=== PATIENT | male | born 1990 | race Caucasian/White ===

== ENCOUNTER 2020-11-06 11:33 | Emergency (ER) | payer OTHER ==
[~2020-11-06] VITALS: Ht 193 cm; Wt 86.2 kg
== END 2020-11-06 12:27 | disposition home or self-care (01) ==
LOC: ER 11:33
DX: S71.111A Laceration without foreign body, right thigh, initial encounter (principal); W26.0XXA Contact with knife, initial encounter
CPT/HCPCS: 12002; 99282-25

== ENCOUNTER 2021-06-26 11:32 | Emergency (ER) | payer OTHER ==
[~2021-06-26] VITALS: Ht 193 cm; Wt 86.2 kg
[2021-06-26 12:51] LABS: Source, Urine Clean Catch
[2021-06-26 13:02] LABS: Appearance, Urine Clear (Clear); Bilirubin, Urine Neg (Neg); Blood, Urine Neg (Neg); Color, Urine Yellow (P-Yellow); Glucose Qualitative, Urine Neg (Neg); Ketones, Urine Neg (Neg); Leukocyte Esterase, Urine Neg (Neg); Nitrite, Urine Neg (Neg); Protein, Urine Neg (Neg); Specific Gravity, Urine 1.015 (1.003-1.022); Urobilinogen, Urine 1+ (Normal); pH, Urine 6.5 (5.0-8.0)
== END 2021-06-26 15:10 | disposition left against medical advice (07) ==
LOC: ER 11:32
PROVIDERS: Physician Assistant
DX: M54.5 Low back pain (principal); G89.29 Other chronic pain; N28.89 Other specified disorders of kidney and ureter; R35.0 Frequency of micturition; Z53.21 Procedure and treatment not carried out due to patient leaving prior to being seen by health care provider; Z87.81 Personal history of (healed) traumatic fracture
CPT/HCPCS: 72100; 81003; 99284-25

== ENCOUNTER 2021-07-15 10:53 | Emergency (ER) | payer OTHER ==
[~2021-07-15] VITALS: Ht 193 cm; Wt 86.2 kg
[2021-07-15] MEDS ORDERED: ONDA4ODT MM (11:39)
[2021-07-15 11:40] LABS: Calcium, Ionized (POC) 1.29 mmol/L (1.10-1.46); Chloride (POC) 103 mmol/L (98-108); Creatinine (POC) 0.8 mg/dL (0.8-1.3); Glucose (ISTAT POC) 96 mg/dL (70-99); Hemoglobin (POC) 16.3 g/dL (13.5-17.5); Potassium (POC) 4.4 mmol/L (3.5-5.5); Sodium (POC) 141 mmol/L (135-148); Total CO2 (POC) 27 mmol/L (21-32)
[2021-07-15] MEDS ORDERED: Percocet 5-3251 EACH PO (12:01)
[2021-07-15] MEDS ORDERED: CYCL10 PO (12:01)
== END 2021-07-15 11:59 | disposition home or self-care (01) ==
LOC: ER 10:53
PROVIDERS: Physician Assistant
DX: M54.5 Low back pain (principal); U07.1 COVID-19; G89.29 Other chronic pain; F17.200 Nicotine dependence, unspecified, uncomplicated
CPT/HCPCS: 36415; 72080; 80047; 85014; 99283-25; A9270

== ENCOUNTER 2021-12-23 08:48 | Emergency (ER) | payer OTHER ==
[~2021-12-23] VITALS: Ht 193 cm; Wt 86.2 kg
[~2021-12-23 08:48] MED LIST: CYCL10 PO; ONDA4ODT MM; Percocet 5-3251 EACH PO
== END 2021-12-23 09:42 | disposition left against medical advice (07) ==
LOC: ER 08:48
DX: Z53.21 Procedure and treatment not carried out due to patient leaving prior to being seen by health care provider (principal)

== ENCOUNTER 2023-02-06 14:19 | Emergency (ER) | payer OTHER ==
[~2023-02-06] VITALS: Ht 193 cm; Wt 86.2 kg
[2023-02-06 16:50] LABS: BASOPHILS ABSOLUTE AUTO 0.02 K/mm3 (0.00-0.23); BASOPHILS PERCENT AUTO 0 % (0-2); EOSINOPHILS ABSOLUTE AUTO 0.01 K/mm3 (0.00-0.68); EOSINOPHILS PERCENT AUTO 0 % (0-6); Hematocrit 39.5 % (37.0-53.0); Hemoglobin 14.3 g/dL (13.5-17.5); IMMATURE GRAN ABSOLUTE AUTO 0.07 K/mm3 (0.00-0.10); IMMATURE GRAN PERCENT AUTO 0 % (0-1); LYMPHOCYTES ABSOLUTE AUTO 2.11 K/mm3 (0.84-5.20); LYMPHOCYTES PERCENT AUTO 13 % (21-46); MONOCYTES ABSOLUTE AUTO 1.66 K/mm3 (0.16-1.47); MONOCYTES PERCENT AUTO 10 % (4-13); Mean Corpuscular HGB 31.5 pg (26.0-34.0); Mean Corpuscular HGB Conc 36.2 g/dL (31.5-36.5); Mean Corpuscular Volume 87 fL (80-100); Mean Platelet Volume 10.1 fL (9.1-12.4); NEUTROPHILS ABSOLUTE AUTO 12.15 K/mm3 (1.96-9.15); NEUTROPHILS PERCENT AUTO 76 % (41-73); Platelet Count 243 K/mm3 (150-400); RDW Coefficient Variation 12.4 % (11.7-14.2); RDW Standard Deviation 39.8 fL (35.1-46.3); Red Blood Cell Count 4.54 M/mm3 (4.30-5.90); White Blood Cell Count 16.02 K/mm3 (4.00-11.30)
[2023-02-06 17:17] LABS: Albumin, Blood 4.4 g/dL (3.4-5.0); Albumin/Globulin Ratio 1.4 (0.8-1.8); Bilirubin, Total 1.3 mg/dL (0.1-1.0); Bun/Creatinine Ratio 37.9 (12.0-20.0); Calcium, Blood 9.2 mg/dL (8.5-10.1); Creatinine, Blood 0.77 mg/dL (0.60-1.20); Globulin, Blood 3.2 g/dL (2.2-4.0); Potassium, Blood 4.9 mmol/L (3.5-5.5); Total Protein, Blood 7.6 g/dL (6.4-8.2)
== END 2023-02-06 17:30 | disposition left against medical advice (07) ==
LOC: ER 14:19
PROVIDERS: Physician Assistant
DX: S80.212A Abrasion, left knee, initial encounter (principal); H53.8 Other visual disturbances; M54.9 Dorsalgia, unspecified; S09.90XA Unspecified injury of head, initial encounter; W01.0XXA Fall on same level from slipping, tripping and stumbling without subsequent striking against object, initial encounter; Z53.21 Procedure and treatment not carried out due to patient leaving prior to being seen by health care provider
CPT/HCPCS: 36415; 70486; 80053; 85025

== ENCOUNTER 2023-02-07 15:02 | Inpatient (IN) | payer OTHER ==
[~2023-02-07] VITALS: Ht 193 cm; Wt 78.7 kg
[2023-02-07 16:12] LABS: BASOPHILS ABSOLUTE AUTO 0.01 K/mm3 (0.00-0.23); BASOPHILS PERCENT AUTO 0 % (0-2); EOSINOPHILS ABSOLUTE AUTO 0.01 K/mm3 (0.00-0.68); EOSINOPHILS PERCENT AUTO 0 % (0-6); Hematocrit 40.2 % (37.0-53.0); Hemoglobin 14.2 g/dL (13.5-17.5); IMMATURE GRAN ABSOLUTE AUTO 0.06 K/mm3 (0.00-0.10); IMMATURE GRAN PERCENT AUTO 0 % (0-1); LYMPHOCYTES ABSOLUTE AUTO 0.68 K/mm3 (0.84-5.20); LYMPHOCYTES PERCENT AUTO 4 % (21-46); MONOCYTES ABSOLUTE AUTO 1.56 K/mm3 (0.16-1.47); MONOCYTES PERCENT AUTO 10 % (4-13); Mean Corpuscular HGB 30.9 pg (26.0-34.0); Mean Corpuscular HGB Conc 35.3 g/dL (31.5-36.5); Mean Corpuscular Volume 87 fL (80-100); Mean Platelet Volume 10.1 fL (9.1-12.4); NEUTROPHILS ABSOLUTE AUTO 13.65 K/mm3 (1.96-9.15); NEUTROPHILS PERCENT AUTO 85 % (41-73); Platelet Count 244 K/mm3 (150-400); RDW Coefficient Variation 12.3 % (11.7-14.2); RDW Standard Deviation 39.8 fL (35.1-46.3); White Blood Cell Count 15.97 K/mm3 (4.00-11.30)
[2023-02-07 16:32] LABS: Albumin, Blood 4.1 g/dL (3.4-5.0); Albumin/Globulin Ratio 1.3 (0.8-1.8); Bilirubin, Total 1.4 mg/dL (0.1-1.0); Bun/Creatinine Ratio 22.5 (12.0-20.0); Calcium, Blood 9.3 mg/dL (8.5-10.1); Creatinine, Blood 0.76 mg/dL (0.60-1.20); Globulin, Blood 3.1 g/dL (2.2-4.0); Potassium, Blood 4.1 mmol/L (3.5-5.5); Total Protein, Blood 7.2 g/dL (6.4-8.2)
[2023-02-07 22:55] LABS: Body Fluid Crystals NEG (NEGATIVE)
[2023-02-07 23:23] LABS: BODY FLUID RBC 0.008 M/mm3 (0-0)
[2023-02-07 23:28] LABS: RBC Count, Synovial Fluid 8000 /mm3 (0-0); WBC Count, Synovial Fluid 49010 /mm3 (0-180)
[2023-02-07 23:49] LABS: Lymphs, Synovial Fluid 4 % (0-15); Monocytes/Macrophages, Synovia 6 % (0-65); Neutrophils, Synovial Fluid 90 % (0-24)
[2023-02-07 23:55] LABS: Appearance, Synovial Fluid Cloudy (Clear); Color, Synovial Fluid Yellow (None-P Yel)
[2023-02-08 05:22] LABS: BASOPHILS ABSOLUTE AUTO 0.03 K/mm3 (0.00-0.23); BASOPHILS PERCENT AUTO 0 % (0-2); EOSINOPHILS PERCENT AUTO 0 % (0-6); Hematocrit 36.8 % (37.0-53.0); Hemoglobin 12.9 g/dL (13.5-17.5); IMMATURE GRAN ABSOLUTE AUTO 0.05 K/mm3 (0.00-0.10); IMMATURE GRAN PERCENT AUTO 0 % (0-1); LYMPHOCYTES ABSOLUTE AUTO 1.28 K/mm3 (0.84-5.20); LYMPHOCYTES PERCENT AUTO 10 % (21-46); MONOCYTES ABSOLUTE AUTO 1.83 K/mm3 (0.16-1.47); MONOCYTES PERCENT AUTO 14 % (4-13); Mean Corpuscular HGB Conc 35.1 g/dL (31.5-36.5); Mean Corpuscular Volume 89 fL (80-100); Mean Platelet Volume 10.4 fL (9.1-12.4); NEUTROPHILS ABSOLUTE AUTO 9.98 K/mm3 (1.96-9.15); NEUTROPHILS PERCENT AUTO 76 % (41-73); Platelet Count 209 K/mm3 (150-400); RDW Coefficient Variation 12.3 % (11.7-14.2); RDW Standard Deviation 40.1 fL (35.1-46.3); Red Blood Cell Count 4.16 M/mm3 (4.30-5.90); White Blood Cell Count 13.17 K/mm3 (4.00-11.30)
[2023-02-08 05:42] LABS: Albumin, Blood 3.3 g/dL (3.4-5.0); Albumin/Globulin Ratio 1.1 (0.8-1.8); Bilirubin, Total 1.1 mg/dL (0.1-1.0); Bun/Creatinine Ratio 18.4 (12.0-20.0); Calcium, Blood 8.6 mg/dL (8.5-10.1); Creatinine, Blood 0.71 mg/dL (0.60-1.20); Globulin, Blood 3.1 g/dL (2.2-4.0); Potassium, Blood 3.6 mmol/L (3.5-5.5); Total Protein, Blood 6.4 g/dL (6.4-8.2)
[2023-02-08 09:04] LABS: International Normalized Ratio 1.02; Prothrombin Time Results 10.7 Sec (9.7-11.5)
--- NOTE | 2023-02-08 09:45 | NUR ---
1635 DR GUO TO ROOM. PT TO GO TO CT. REQUEST GIVE DILAUDID NOW AND MAKE Q2 HR. DONE
--- NOTE | 2023-02-08 17:17 | NUR ---
TO DAY SURG, 17:17
--- NOTE | 2023-02-08 18:10 | NUR ---
"Spiritual Care Attempted | Pt. request Pt. was unavailable on two occassions. Pt. in surgery during the second dinnertime visit. Will return in the AM."
--- NOTE | 2023-02-08 18:46 | NUR ---
PT NPO TODAY. PENDING GOING TO DAY SURG PER DR DHALIWAL TO WASH OUT KNEE. LFT KNEE IS SWOLLEN AND QUITE PAINFUL PER PT. MEDIATED REGULARLY WITH DILAUDID TODAY. PT TOOK SHOWER AND OVER WASHED HIS ORBITAL SCAB. SCANT BLEEDING NOTED. AIR DRY. TO DAY SURG AT 17:17 NOT BACK YET.
--- NOTE | 2023-02-09 01:07 | NUR ---
PT BROUGHT BACK FROM [facility] ON L KNEE. LACE TEARING SUPERVISOR BROUGHT PT BACK AND POST OP REPORT GIVEN.
--- NOTE | 2023-02-09 03:20 | NUR ---
SHIFT SUMMARY NOC PT A/O X 4. PT IS POST OP FOR SEPTIC ARTHRITIS OF L KNEE.PT HAD HARDWARE REMOVED FROM L TIBIA AND ARTHROSCOPIC SURGERY ON L KNEE. PT HAS [address] DRAINING RED BLOOD. PT ALSO HAS IMMOBILIZER DEVICE IN PLACE ON LLE. PT IS NO LONGER NPO AND IS ON REGULAR DIET. PT HAS VOIDED 6 TIMES POST OP AND HAS GOOD FLUID INTAKE. PT HAS OPEN SCAB ABOVE LEFT EYE AIR DRYING. PT HAS HAD CONSTANT C/O OF PAIN AND HAS BEEN MEDICATED WITH Q2PRN DILAUDID. PT IS TAKING VANCOMYCIN FOR INFECTION. PT IS CURRENTLY RESTING WITH BED IN LOWEST POSITION, AND CALL LIGHT WITHIN REACH.
--- NOTE | 2023-02-09 09:51 | NUR ---
Spiritual Care Visit| Pt. request Pt. is awake in bed and welcomes my visit. Pt. is pleasant but unsettled about his recovery from surgery and the need to be dependant on others. Listen with an empathetic ear and a calming presence. Pt. [place]. Facilitate a limited life review. Pt. displays evidence of trust. Prayed with Pt. Pt. verbalized gratitude for the spiritual care visit.
--- NOTE | 2023-02-09 19:30 | NUR ---
SHIFT SUMMARY NO ACUTE EVENTS THIS SHIFT. PTN RONNIE DRAINS TO L KNEE DRAINED THROUGHOUT THE SHIFT. PAIN COVERAGE PER EMAR. PAIN REMAINED AT AN 8 AND AN INCREASE WAS MADE TO MEDICATION. PTN WAS UP WITH WALKER IN [place] WITH A FRIEND AND HIS YOUNG SON. PTN WITH GOOD ATTITUDE, BUT GOT NEWS THAT HIS L LEG MAY NEED FURTHER SURGERY OR EVEN AMPUTATION. PTN TRIED TO KEEP GOOD ATTITUDE, BUT WAS NOTABLY CONCERNED. PTN INDEPENDENT IN ROOM. L LEG REMAINS IN BRACE WITH NEGAR BANDAGE SEEN BELOW BOTTOM, NOT REMOVED. L PERIORBITAL CELLULITIS IMPROVED, WITH SOME NOTED SWELLING BELOW EYE AND HIGH CHEEK. CONTINUE TO FOLLOW.
[2023-02-09 23:18] LABS: Vancomycin, Trough 13.2 ug/mL (5.0-10.0)
[2023-02-10 05:10] LABS: Hematocrit 36.2 % (37.0-53.0); Hemoglobin 12.7 g/dL (13.5-17.5); Mean Corpuscular HGB 31.5 pg (26.0-34.0); Mean Corpuscular HGB Conc 35.1 g/dL (31.5-36.5); Mean Corpuscular Volume 90 fL (80-100); Mean Platelet Volume 10.2 fL (9.1-12.4); Platelet Count 260 K/mm3 (150-400); RDW Coefficient Variation 12.8 % (11.7-14.2); RDW Standard Deviation 41.8 fL (35.1-46.3); Red Blood Cell Count 4.03 M/mm3 (4.30-5.90); White Blood Cell Count 19.03 K/mm3 (4.00-11.30)
--- NOTE | 2023-02-10 05:36 | NUR ---
SHIFT SUMMARY NOC PT A/O X 4. PT HAVING CONSTANT PAIN AFTER L KNEE SURGERY 02/08/23. PT MEDICATED ENTIRE SHIFT FOR PAIN. PT REPORTS THAT SURGEON TOLD THEM THAT PT MAY HAVE TO HAVE LLE AMPUTATED DUE TO BONE INFECTION FROM HARDWARE IN LEG THAT WAS REMOVED. PT STATES THAT SURGEON WILL TALK TO PT AGAIN TODAY.PT HAS 2 RONNIE DRAINS IN LEFT KNEE DRAINING RED BLOOD. DRAINAGE IS MUCH LESS THAN PREVIOUS NIGHT. PT HAS C/O OF SWELLING IN LLE. WILL PASS ON TO DAY SHIFT RN TO DISCUSS WITH ROUNDING HOSPITALIST. PT ALSO WANTS PAIN RX INTERVAL FOR OXYCONTIN TO BE SHORTENED. NIGHT HOSPITALIST DID NOT CHANGE PN RX SCHEDULE. PT WENT OUTSIDE TO SMOKE DURING BEGINNING OF SHIFT AND ENDED UP IN WAITING ROOM OF ED. AIRLINE FLIGHT ATTENDANT NOTIFIED AND PT PICKED UP BY CHARGE MANAGER WITH WHEELCHAIR. PT REPORTED FEELING MORE FATIGUED THAN ANTICIPATED AND MADE AGREEMENT NOT TO ATTEMPT GOING OUTSIDE AGAIN. PT IS CURRENTLY RESTING WITH BED IN LOWEST POSITION, AND CALL LIGHT WITHIN REACH.
[2023-02-10 05:47] LABS: Bun/Creatinine Ratio 26.7 (12.0-20.0); Calcium, Blood 8.7 mg/dL (8.5-10.1); Creatinine, Blood 0.71 mg/dL (0.60-1.20); Potassium, Blood 3.8 mmol/L (3.5-5.5)
--- NOTE | 2023-02-10 10:44 | NUR ---
PATIENT LEFT THE ROOM AT THIS TIME. PER PATIENT "I JUST WANNA GO FOR A WALK." EDUCATE PATIENT WITH REGARDS TO THE POLICY AND CANNOT BE GONE FOR MORE THAN AND HOUR. PATIENT STATED UNDERSTANDING AND PER PATIENT HE WILL BE BACK IN 30 MINUTES.
--- NOTE | 2023-02-10 15:04 | NUR ---
PATIENT LEFT THE ROOM AT THIS TIME. PATIENT WAS TRANSPORTED VIA BED BY SMILEY KRUSE TO SURGERY ON L KNEE.
--- NOTE | 2023-02-10 16:46 | NUR ---
02/10/23 1646 Sallie Littlejohn NO PREOP ANTIBIOTICS ORDERED PATIENT IS ON SCHEDULED ANTIBIOTICS PER .
--- NOTE | 2023-02-10 17:30 | NUR ---
SHIFT SUMMARY: PATIENT A&OX4. ANXIOUS AT TIMES AND REQUESTING TO GO OUTSIDE TO SMOKE ON 2 DIFFERENT OCCASION THIS SHIFT. EDUCATE PATIENT REGARDING NO SMOKING POLICY IN CAMPUS. PER PATIENT THEY HAVE BEEN LETTING ME SMOKE OUTSIDE BY THE [facility] SINCE I GOT ADMITTED IN THIS UNIT ON THE 29. EDUCATE PATIENT REGARDING SCHEDULED NICOTINE PATCH AND ENCOURAGE PATIENT NOT TO SMOKE WHILE PATCH IS ON. PATIENT STATED UNDERSTANDING. PATIENT REQUESTING TO INCREASE THE DOSE OF PAIN MEDICATION AND PER PATIENT DR. GUO MENTION ABOUT FOUNTAIN MANAGER. THIS RN EDUCATE PATIENT REGARDING FOUNTAIN MANAGER AND HE IS NOT ALLOWED TO GO OUTSIDE IF HE PREFERRED THE FOUNTAIN MANAGER OPTION. PER PATIENT "I WOULD RATHER HAVE MY FREEDOM TO SMOKE OUSIDE IF THAT'S THE CASE AND ABLE TO SLEEP AT NIGHT." THIS RN COMMUNICATE c DR. GUO REGARDING PATIENT CONCERN. DR. GUO PLACED AN ORDER IN EMAR OXYCODONE Q4 FOR PAIN AND TRAZODONE AT HS FOR SLEEP. INFORMED PATIENT REGARDING THE NEW MEDS CHANGES. PATIENT STATED UNDERSTANDING AND HAPPY WITH THE NEW MEDS CHANGES. L KNEE IMMOBILIZER AND NOTED TO HAVE 2 RONNIE DRAIN c DARK RED BLOOD DRAINAIGE INSIDE. PATIENT CONTINUES TO REPORT PAIN 8/10 TO L KNEE. MEDICATED c DILAUDID X3 AND OXYCODONE X1 FOR PAIN THIS SHIFT. VITAL SIGNS REVIEWED. DENIES CP/PRESSURE, N/V, SOB. PATIENT LEFT THE ROOM AT 1504 TO DAY SURGERY. PATIENT IS NOT BACK IN ROOM AT THIS TIME.
--- NOTE | 2023-02-10 19:02 | NUR ---
PATIENT STILL NOT BACK IN ROOM AT THIS TIME. REPORT GIVEN TO JEREMÍAS REIS.
[2023-02-11 05:27] LABS: BASOPHILS ABSOLUTE AUTO 0.01 K/mm3 (0.00-0.23); BASOPHILS PERCENT AUTO 0 % (0-2); EOSINOPHILS PERCENT AUTO 0 % (0-6); Hematocrit 35.7 % (37.0-53.0); IMMATURE GRAN ABSOLUTE AUTO 0.06 K/mm3 (0.00-0.10); IMMATURE GRAN PERCENT AUTO 1 % (0-1); LYMPHOCYTES ABSOLUTE AUTO 0.88 K/mm3 (0.84-5.20); LYMPHOCYTES PERCENT AUTO 7 % (21-46); MONOCYTES ABSOLUTE AUTO 0.65 K/mm3 (0.16-1.47); MONOCYTES PERCENT AUTO 5 % (4-13); Mean Corpuscular HGB 30.6 pg (26.0-34.0); Mean Corpuscular HGB Conc 33.6 g/dL (31.5-36.5); Mean Corpuscular Volume 91 fL (80-100); Mean Platelet Volume 9.6 fL (9.1-12.4); NEUTROPHILS ABSOLUTE AUTO 11.54 K/mm3 (1.96-9.15); NEUTROPHILS PERCENT AUTO 88 % (41-73); Platelet Count 336 K/mm3 (150-400); RDW Coefficient Variation 12.9 % (11.7-14.2); RDW Standard Deviation 42.7 fL (35.1-46.3); Red Blood Cell Count 3.92 M/mm3 (4.30-5.90); White Blood Cell Count 13.14 K/mm3 (4.00-11.30)
--- NOTE | 2023-02-11 05:42 | NUR ---
PATIENT REMAINS ALERT AND ORIENTED, NON COOPERATIVE WITH CARE AT TIMES, STAFF SPLITTING BEHAVIOR AND YELLING. 10/10 L LED PAIN HAS BEEN TREATED AROUND THE CLOCK WITH LITTLE RESULTS. 2X ONE TIME ATIVAN ORDERS WELL. PATIENT STARTS SHAKE, HYPERVENT, CLINCH FISTS AND YELL. THIS AM COLLEGE ADMINISTRATOR HAS BEEN ORDERED, WILL ADMIN ONCE AVAILABLE FROM PHARMACY. 30ML RED FLUID FROM RONNIE, NOTHING FROM HVAC. PATIENT CONTINUES TO TAKE OFF L LEG SPLINT, AND GETTING UP FULL WEIGHT BARRING, EVEN AFTER AFTER INTRUCTION/EDUCATION. WILL CONT TO MONITOR.
[2023-02-11 06:18] LABS: Bun/Creatinine Ratio 27.8 (12.0-20.0); C-REACTIVE PROTEIN, EXT RANGE 4.44 mg/dL (0.000-0.300); Calcium, Blood 8.6 mg/dL (8.5-10.1); Creatinine, Blood 0.72 mg/dL (0.60-1.20); Magnesium, Blood 1.8 mg/dL (1.6-2.4); Potassium, Blood 4.1 mmol/L (3.5-5.5)
--- NOTE | 2023-02-11 08:00 | NUR ---
pt sitting up in bed with many complaints asking for pain meds, complaining about the knee immobilizer, hooked up fig washer, pt very relieved to have it, a/ox3, lungs are clear t/o, on r/a, hrr, edema noted to left foot, pp faint, piv x2, infusing fluids as ordered, btx4, abd flat soft nontender, voids via urinal, skin c/w/d except surg site on left knee which is wrapped in dressing, eveline barakat, call light in reach.
[2023-02-12 05:20] LABS: BASOPHILS ABSOLUTE AUTO 0.02 K/mm3 (0.00-0.23); BASOPHILS PERCENT AUTO 0 % (0-2); EOSINOPHILS ABSOLUTE AUTO 0.06 K/mm3 (0.00-0.68); EOSINOPHILS PERCENT AUTO 1 % (0-6); Hematocrit 35.9 % (37.0-53.0); Hemoglobin 12.2 g/dL (13.5-17.5); IMMATURE GRAN ABSOLUTE AUTO 0.05 K/mm3 (0.00-0.10); IMMATURE GRAN PERCENT AUTO 0 % (0-1); LYMPHOCYTES ABSOLUTE AUTO 3.66 K/mm3 (0.84-5.20); LYMPHOCYTES PERCENT AUTO 31 % (21-46); MONOCYTES ABSOLUTE AUTO 1.13 K/mm3 (0.16-1.47); MONOCYTES PERCENT AUTO 9 % (4-13); Mean Corpuscular Volume 91 fL (80-100); Mean Platelet Volume 9.6 fL (9.1-12.4); NEUTROPHILS ABSOLUTE AUTO 7.08 K/mm3 (1.96-9.15); NEUTROPHILS PERCENT AUTO 59 % (41-73); Platelet Count 369 K/mm3 (150-400); RDW Coefficient Variation 12.9 % (11.7-14.2); RDW Standard Deviation 42.8 fL (35.1-46.3); Red Blood Cell Count 3.93 M/mm3 (4.30-5.90)
[2023-02-12 05:56] LABS: Bun/Creatinine Ratio 21.3 (12.0-20.0); Calcium, Blood 8.7 mg/dL (8.5-10.1); Creatinine, Blood 0.7 mg/dL (0.60-1.20)
--- NOTE | 2023-02-12 16:32 | NUR ---
SHIFT SUMMARY PATIENT IS ALERT AND ORIENTED. PATIENT HAS HAD NO ACUTE EVENTS THIS SHIFT. VITAL SIGNS REVIEWED. PATIENT IS ADMITTED FOR LEFT LEG CELLULITIS. IV ABX INFUSED. NEW IV INSERTED. PATIENT COMPLAINS OF PAIN BUT SAND BUFFER PUMP IN USE BY PATIENT. PATIENT HAS NOT COMPLAINED OF SOB, NAUSEA, OR VOMITTING THIS SHIFT. PATIENT IND IN ROOM. BED IN LOCKED AND LOWEST POSITION. CALL LIGHT IN PLACE. WILL MONITOR UNTIL SHIFT CHANGE.
[2023-02-13 04:58] LABS: BASOPHILS ABSOLUTE AUTO 0.05 K/mm3 (0.00-0.23); BASOPHILS PERCENT AUTO 0 % (0-2); EOSINOPHILS ABSOLUTE AUTO 0.11 K/mm3 (0.00-0.68); EOSINOPHILS PERCENT AUTO 1 % (0-6); Hematocrit 41.1 % (37.0-53.0); Hemoglobin 13.5 g/dL (13.5-17.5); IMMATURE GRAN ABSOLUTE AUTO 0.19 K/mm3 (0.00-0.10); IMMATURE GRAN PERCENT AUTO 2 % (0-1); LYMPHOCYTES ABSOLUTE AUTO 3.73 K/mm3 (0.84-5.20); LYMPHOCYTES PERCENT AUTO 30 % (21-46); MONOCYTES ABSOLUTE AUTO 1.29 K/mm3 (0.16-1.47); MONOCYTES PERCENT AUTO 10 % (4-13); Mean Corpuscular HGB 30.6 pg (26.0-34.0); Mean Corpuscular HGB Conc 32.8 g/dL (31.5-36.5); Mean Corpuscular Volume 93 fL (80-100); Mean Platelet Volume 9.5 fL (9.1-12.4); NEUTROPHILS ABSOLUTE AUTO 7.05 K/mm3 (1.96-9.15); NEUTROPHILS PERCENT AUTO 57 % (41-73); Platelet Count 444 K/mm3 (150-400); RDW Standard Deviation 44.3 fL (35.1-46.3); Red Blood Cell Count 4.41 M/mm3 (4.30-5.90); White Blood Cell Count 12.42 K/mm3 (4.00-11.30)
[2023-02-13 05:29] LABS: Albumin, Blood 3.1 g/dL (3.4-5.0); Albumin/Globulin Ratio 0.8 (0.8-1.8); Bilirubin, Total 0.3 mg/dL (0.1-1.0); Bun/Creatinine Ratio 20.2 (12.0-20.0); Calcium, Blood 9.4 mg/dL (8.5-10.1); Creatinine, Blood 0.84 mg/dL (0.60-1.20); Globulin, Blood 3.8 g/dL (2.2-4.0); Potassium, Blood 5.2 mmol/L (3.5-5.5); Total Protein, Blood 6.9 g/dL (6.4-8.2)
--- NOTE | 2023-02-13 06:50 | NUR ---
NPO SINCE MIDNIGHT FOR REPEAT I&D TODAY. CONTINUES TO C/O SEVERE PAIN DESPITE USE OF STAGE ELECTRICIAN PUMP
--- NOTE | 2023-02-13 17:43 | NUR ---
SHIFT SUMMARY: NO ACUTE EVENTS. PT STATES PAIN IS STEADY AT 9/10 IN L KNEE DESPITE DILAUDID PULP REFINER OPERATOR AND TYLENOL. ALSO STATES HIS BACK HURTS THOUGH HE MAY HAVE DAMAGED A DISC WHEN HE FELL. MINIMAL DRAINAGE FROM HEMOVAC AND RONNIE DRAIN. REQUESTED THAT DRESSING ON L KNEE BE CHANGED BECAUSE "NO ONE HAS LOOKED AT IT IN SEVERAL DAYS." NO ORDERS FOR DRESSING CHANGES. I&D WILL BE DONE TOMORROW, WILL BE NPO AFTER MIDNIGHT.
--- NOTE | 2023-02-14 04:19 | NUR ---
SHIFT SUMMARY 32 YR M ADMITTED ON 02/08/23 FOR LEFT KNEE CELLULITIS. FULL CODE. NO ACUTE CHANGES THIS SHIFT. RONNIE DRAIN AND H VAC DRAINING WELL. PT HAS BEEN NPO SINCE MIDNIGHT HE IS SCHEDULED FOR AN ADDITIONAL I&D OF LEFT KNEE TODAY. HE C/O PAIN AND THAT THE SWITCHBOARD MANAGER PUMP IS NOT AFFECTIVE WHEN HE IS SLEEPING AND HE IS HAVING TO PLAY CATCH UP WHEN HE WAKES UP. DOCS LAST NOTE REFLECTS THAT HE IS AWARE OF THIS ISSUE.
[2023-02-14 05:31] LABS: BASOPHILS ABSOLUTE AUTO 0.04 K/mm3 (0.00-0.23); BASOPHILS PERCENT AUTO 0 % (0-2); EOSINOPHILS ABSOLUTE AUTO 0.14 K/mm3 (0.00-0.68); EOSINOPHILS PERCENT AUTO 1 % (0-6); Hematocrit 37.4 % (37.0-53.0); Hemoglobin 12.7 g/dL (13.5-17.5); IMMATURE GRAN ABSOLUTE AUTO 0.16 K/mm3 (0.00-0.10); IMMATURE GRAN PERCENT AUTO 2 % (0-1); LYMPHOCYTES ABSOLUTE AUTO 3.19 K/mm3 (0.84-5.20); LYMPHOCYTES PERCENT AUTO 31 % (21-46); MONOCYTES ABSOLUTE AUTO 1.02 K/mm3 (0.16-1.47); MONOCYTES PERCENT AUTO 10 % (4-13); Mean Corpuscular Volume 91 fL (80-100); NEUTROPHILS ABSOLUTE AUTO 5.92 K/mm3 (1.96-9.15); NEUTROPHILS PERCENT AUTO 57 % (41-73); Platelet Count 424 K/mm3 (150-400); RDW Coefficient Variation 13.1 % (11.7-14.2); RDW Standard Deviation 43.3 fL (35.1-46.3); White Blood Cell Count 10.47 K/mm3 (4.00-11.30)
[2023-02-14 05:53] LABS: Albumin, Blood 2.8 g/dL (3.4-5.0); Albumin/Globulin Ratio 0.8 (0.8-1.8); Bilirubin, Total 0.3 mg/dL (0.1-1.0); Bun/Creatinine Ratio 27.4 (12.0-20.0); Calcium, Blood 9.2 mg/dL (8.5-10.1); Creatinine, Blood 0.66 mg/dL (0.60-1.20); Globulin, Blood 3.6 g/dL (2.2-4.0); Potassium, Blood 4.2 mmol/L (3.5-5.5); Total Protein, Blood 6.4 g/dL (6.4-8.2)
--- NOTE | 2023-02-14 13:10 | NUR ---
PATIENT OFF UNTI VIA GURNEY TO DAY SURGERY FOR I&D.
--- NOTE | 2023-02-14 13:41 | NUR ---
PT HAS A 20G IV IN RIGHT WRIST THAT RUNS WELL TO GRAVITY, SHOWS NO SIGNS OF INFILTRATION, NO REDNESS, SWELLING.
--- NOTE | 2023-02-14 16:06 | NUR ---
02/14/23 1606 Jovanny [place] I PT ARRIVED TO OR WITHOUT SCD'S IN PLACE. WAS MADE AWARE.
--- NOTE | 2023-02-14 17:09 | NUR ---
PATIENT RETURNED FROM PACU AT 1706, TRANSFERRED TO BED. PAIN IS 10/10, IS SHAKING AND SWEATING. RECIEVED ONE TIME DILAUDID ORDER FROM DR. PACHECO. TACHYCARDIC IN 110'S. WILL CONTINUE TO MONITOR.
--- NOTE | 2023-02-14 17:40 | NUR ---
SHIFT SUMMARY: PAIN BETTER CONTROLLED AFTER ONE TIME DOSE OF DILAUDID. L KNEE HAS RONNIE TYPE DRAIN, HEMOVAC WAS REMOVED IN OR. POWER DISTRIBUTOR AND TKO IVF RE-STARTED IMMEDIATELY AFTER HIS RETURN. LLE ELEVATED ON 3 PILLOWS. DENIED NAUSEA, WANTS TO EAT. PATIENT ADVOCATE CONTACTED THIS MORNING TO ASSIST PATIENT.
[2023-02-15 05:24] LABS: BASOPHILS ABSOLUTE AUTO 0.01 K/mm3 (0.00-0.23); BASOPHILS PERCENT AUTO 0 % (0-2); EOSINOPHILS PERCENT AUTO 0 % (0-6); Hematocrit 34.3 % (37.0-53.0); Hemoglobin 11.7 g/dL (13.5-17.5); IMMATURE GRAN ABSOLUTE AUTO 0.05 K/mm3 (0.00-0.10); IMMATURE GRAN PERCENT AUTO 1 % (0-1); LYMPHOCYTES ABSOLUTE AUTO 0.78 K/mm3 (0.84-5.20); LYMPHOCYTES PERCENT AUTO 8 % (21-46); MONOCYTES ABSOLUTE AUTO 0.22 K/mm3 (0.16-1.47); MONOCYTES PERCENT AUTO 2 % (4-13); Mean Corpuscular HGB 30.9 pg (26.0-34.0); Mean Corpuscular HGB Conc 34.1 g/dL (31.5-36.5); Mean Corpuscular Volume 91 fL (80-100); Mean Platelet Volume 9.1 fL (9.1-12.4); NEUTROPHILS ABSOLUTE AUTO 9.06 K/mm3 (1.96-9.15); NEUTROPHILS PERCENT AUTO 90 % (41-73); Platelet Count 398 K/mm3 (150-400); RDW Coefficient Variation 12.8 % (11.7-14.2); RDW Standard Deviation 42.4 fL (35.1-46.3); Red Blood Cell Count 3.79 M/mm3 (4.30-5.90); White Blood Cell Count 10.12 K/mm3 (4.00-11.30)
[2023-02-15 06:00] LABS: Albumin, Blood 2.9 g/dL (3.4-5.0); Albumin/Globulin Ratio 0.8 (0.8-1.8); Bilirubin, Total 0.3 mg/dL (0.1-1.0); Bun/Creatinine Ratio 28.8 (12.0-20.0); Calcium, Blood 8.8 mg/dL (8.5-10.1); Creatinine, Blood 0.73 mg/dL (0.60-1.20); Globulin, Blood 3.8 g/dL (2.2-4.0); Potassium, Blood 4.3 mmol/L (3.5-5.5); Total Protein, Blood 6.7 g/dL (6.4-8.2)
--- NOTE | 2023-02-15 17:14 | NUR ---
SHIFT SUMMARY NO ACUTE CHANGES THIS SHIFT. PT AOX4, INDEPENDENT IN THE ROOM. HE GOT A CT DONE TODAY, THIS AFTERNOON. STILL AWAITING RESULTS. DILAUDED VIAL WAS CHANGED AND VERIFIED WITH SMILEY RANGEL. PT DID C/O OF NAUSEA AFTER THE CT DUE TO THE CONTRAST, FOOD WAS PROVIDED AND THE PT TOLERATED IT WELL. BED IN THE LOWEST POSITION, CALL LIGHT WITHIN REACH. WILL REPORT TO ONCOMING NURSE.
--- NOTE | 2023-02-15 19:40 | NUR ---
PATIENT VERBALIZED, " I AM GOING TO VENDING MACHINE AND NEXT GO OUTSIDE." PATIENT USING FWW INDEPENDENTLY. PATIENT AWARE IF HE SMOKES HIS GLASS EMBOSSER PUMP WILL BE DC'D.
--- NOTE | 2023-02-15 20:19 | NUR ---
PATIENT BACK IN ROOM. PATIENT VERBALIZED, "HE WENT TO VENDING MACHINE AND OUTSIDE AND DID SMOKE."
--- NOTE | 2023-02-16 04:08 | NUR ---
SHIFT SUMMARY PATIENT HAD NO ACUTE CHANGES. AXOX 4 AND INDEPENDENT IN ROOM, [place], AND OUTSIDE WITH FWW. PIV REMAINS INTACT. PATIENT REPORTS LEFT KNEE PAIN. ONCOLOGY REGISTRAR PUMP IN USE PER ORDER. SCHEDULE IV DILAUDUD 1 MG GIVEN PER EMAR. DENIES CHEST PAIN, SOB, AND N/V. HX IV DRUG USE. REPORTED HE PULLED NICOTINE PATCH OFF AND WENT OUTSIDE TO SMOKE X ONE. VSS/AFEBRILE. PO ATIVAN 1 MG GIVEN FOR INSOMNIA WITH MINIMAL EFFECT. CALL LIGHT IN REACH. BED IN LOWEST POSITION. WILL CONTINUE TO MONITOR UNTIL DAY SHIFT NURSE ASSUMES CARE.
[2023-02-16 05:35] LABS: BASOPHILS ABSOLUTE AUTO 0.04 K/mm3 (0.00-0.23); BASOPHILS PERCENT AUTO 0 % (0-2); EOSINOPHILS ABSOLUTE AUTO 0.06 K/mm3 (0.00-0.68); EOSINOPHILS PERCENT AUTO 0 % (0-6); Hematocrit 33.2 % (37.0-53.0); Hemoglobin 11.1 g/dL (13.5-17.5); IMMATURE GRAN ABSOLUTE AUTO 0.07 K/mm3 (0.00-0.10); IMMATURE GRAN PERCENT AUTO 1 % (0-1); LYMPHOCYTES ABSOLUTE AUTO 3.26 K/mm3 (0.84-5.20); LYMPHOCYTES PERCENT AUTO 24 % (21-46); MONOCYTES ABSOLUTE AUTO 0.69 K/mm3 (0.16-1.47); MONOCYTES PERCENT AUTO 5 % (4-13); Mean Corpuscular HGB 31.3 pg (26.0-34.0); Mean Corpuscular HGB Conc 33.4 g/dL (31.5-36.5); Mean Corpuscular Volume 94 fL (80-100); Mean Platelet Volume 9.3 fL (9.1-12.4); NEUTROPHILS ABSOLUTE AUTO 9.72 K/mm3 (1.96-9.15); NEUTROPHILS PERCENT AUTO 70 % (41-73); Platelet Count 429 K/mm3 (150-400); RDW Coefficient Variation 13.1 % (11.7-14.2); RDW Standard Deviation 44.8 fL (35.1-46.3); Red Blood Cell Count 3.55 M/mm3 (4.30-5.90); White Blood Cell Count 13.84 K/mm3 (4.00-11.30)
[2023-02-16 06:47] LABS: Albumin, Blood 2.8 g/dL (3.4-5.0); Albumin/Globulin Ratio 0.8 (0.8-1.8); Bilirubin, Total 0.3 mg/dL (0.1-1.0); Bun/Creatinine Ratio 35.3 (12.0-20.0); Calcium, Blood 8.7 mg/dL (8.5-10.1); Creatinine, Blood 0.71 mg/dL (0.60-1.20); Globulin, Blood 3.4 g/dL (2.2-4.0); Potassium, Blood 4.2 mmol/L (3.5-5.5); Total Protein, Blood 6.2 g/dL (6.4-8.2)
--- NOTE | 2023-02-16 09:34 | NUR ---
NURSE NOTE PATIENT DISCONNECTED RN BIRTHING PUMP. PATIENT LEFT THE FLOOR AND FACILITY TO SMOKE. PATIENT WAS EDUCATED AND WARNED ABOUT THE RISKS OF LEAVING FOR HIMSELF AND STAFF. PATIENT WAS OFF THE FLOOR FOR APROX 35 MINUTES. PATIENT LEFT AT 0900 AND CAME BACK AT 0935. DR HURTADO AND CHARGE NURSE MARY ARE AWARE OF SITUATION. RADHAMES ARE AWARE OF THE SITUATION.
--- NOTE | 2023-02-16 15:58 | NUR ---
SHIFT SUMMARY PATIENT IS ALERT AND ORIENTED. PATIENT HAS HAD NO ACUTE EVENTS THIS SHIFT. VITAL SIGNS REVIEWED. PATIENT HAS BEEN OUTSIDE TO SMOKE TWICE THIS SHIFT. AUTOMATIC TELLER MACHINE SERVICER PUMP WAS DISCONTINUED THIS MORNING AFTER PATIENT LEFT FACILITY. DR HURTADO ADJUSTED PATIENTS PAIN MEDICATION AND PICC LINE PLACEMENT AND DISCHARGE TOMORROW IS PLANNED. PATIENT HAS NOT COMPLAINED OF SOB, NAUSEA OR SOB THIS SHIFT. BED IN LOCKED AND LOWEST POSITION. CALL LIGHT IN PLACE. WILL MONITOR UNTIL SHIFT CHANGE.
--- NOTE | 2023-02-17 05:25 | NUR ---
SHIFT SUMMARY PT PARTICIPATED IN BEDSIDE REPORT- PT REQUESTED CALL TO RE: NEEDED ADDITIONAL DOSE OF PAIN MEDICATION, [address] REN - NEW ORDER FOR 1 TIME DOSE OF DILAUDID IV AND TORADOL Q6H 221 PT REQUESTED FOR ADDITIONAL PAIN MEDICATION -CALL TO DR. BRYANT RE: PT CONTINUES TO REPORT PAIN OUT OF CONTROL, PT BP 98/59 HR 73- NEW ORDER TO GIVE FENTANYL 25-50MCG - GAVE FENTANYL 25MCG - PT TOLERATED WELL- 0500 LAB REPORTED PT FELT STARTLED AND REQUESTED LAB COME BACK IN COUPLE HOURS FOR DRAW- PT RETURNED TO LAYING IN BED WITH EYES CLOSED, EVEN RESPIRATIONS, BED LOW POSITION, CALL LIGHT WITHIN REACH
[2023-02-17 10:59] LABS: Influenza A, PCR NEGATIVE (NEGATIVE); Influenza B, PCR NEGATIVE (NEGATIVE); Resp Syncytial Virus, PCR NEGATIVE (NEGATIVE); SARS-Cov-2 (COVID-19) PCR, MMC NEGATIVE (NEGATIVE)
[2023-02-17] MEDS ORDERED: ACET325 PO (11:18)
[2023-02-17] MEDS ORDERED: CEFAZOLIN2 GM/50 M3 IV (11:19)
[2023-02-17] MEDS ORDERED: GABA100 PO (11:19)
[2023-02-17] MEDS ORDERED: DOCU100 PO (11:19)
[2023-02-17] MEDS ORDERED: HYDMOR2 PO (11:20)
[2023-02-17] MEDS ORDERED: Ativan1 MG PO (11:21)
[2023-02-17] MEDS ORDERED: DULCOLAX400 MG/5 M PO (11:22)
[2023-02-17] MEDS ORDERED: NICO21TP TOP (11:25)
[2023-02-17] MEDS ORDERED: MIRALAX1714 PO (11:25)
[2023-02-17] MEDS ORDERED: NARCAN4 M1 (11:25)
[2023-02-17] MEDS ORDERED: VISBIOME 112.51 EACH PO (11:26)
--- NOTE | 2023-02-17 12:50 | NUR ---
DISCHARGE SUMMARY REPORT CALL[facility] TO [facility]. PT PENDING ICE CREAM FREEZER TIME FOR 1400, PT NOTIFIED. PT PACKET COMPLETE, PRESCRIPTIONS X 2 IN PACKET. PERIPHERAL IV REMOVED FROM RFA WITH CATHETER TIP INTACT. PICC LINE PLACED IN HITESH D/T 6 WEEKS OF ABX NEEDED. WILL AWAIT PICKUP, CONTINUE TO MONITOR. CALL LIGHT WITHIN REACH.
[2023-02-18] MEDS ORDERED: HYDMOR4 PO (18:07)
== END 2023-02-17 15:25 | DRG 463 ==
LOC: ER 15:02 → MEDS 02-08 02:41
PROVIDERS: Family Medicine; Internal Medicine; Orthopaedic Surgery; Physician Assistant; Student in an Organized Health Care Education/Training Program; ADMIT Student in an Organized Health Care Education/Training Program
PROC: 02HV33Z Insertion of Infusion Device into Superior Vena Cava, Percutaneous Approach (ICD-10-PCS; 2023-02-08)
PROC: 0SP Lower Joints, Removal (ICD-10-PCS; 2023-02-08)
PROC: 3E03329 Introduction of Other Anti-infective into Peripheral Vein, Percutaneous Approach (ICD-10-PCS; 2023-02-08)
PROC: 0S9D3ZZ Drainage of Left Knee Joint, Percutaneous Approach (ICD-10-PCS; 2023-02-08)
PROC: BQ48ZZZ Ultrasonography of Left Knee (ICD-10-PCS; 2023-02-08)
PROC: 0JBP0ZZ Excision of Left Lower Leg Subcutaneous Tissue and Fascia, Open Approach (ICD-10-PCS; 2023-02-10)
PROC: 3E0U329 Introduction of Other Anti-infective into Joints, Percutaneous Approach (ICD-10-PCS; 2023-02-10)
PROC: 0SBD0ZZ Excision of Left Knee Joint, Open Approach (ICD-10-PCS; principal; 2023-02-10 15:35)
PROC: 0QB Lower Bones, Excision (ICD-10-PCS; 2023-02-14)
PROC: 0S9D40Z Drainage of Left Knee Joint with Drainage Device, Percutaneous Endoscopic Approach (ICD-10-PCS; 2023-02-14)
DX: T84.54XA Infection and inflammatory reaction due to internal left knee prosthesis, initial encounter (principal); A41.01 Sepsis due to Methicillin susceptible Staphylococcus aureus; E87.1 Hypo-osmolality and hyponatremia; M00.062 Staphylococcal arthritis, left knee; L03.116 Cellulitis of left lower limb; M86.8X6 Other osteomyelitis, lower leg; L03.213 Periorbital cellulitis; L03.211 Cellulitis of face; L03.115 Cellulitis of right lower limb; L02.416 Cutaneous abscess of left lower limb; M54.50 Low back pain, unspecified; D64.9 Anemia, unspecified; F41.9 Anxiety disorder, unspecified; Z60.9 Problem related to social environment, unspecified; R94.5 Abnormal results of liver function studies; B19.20 Unspecified viral hepatitis C without hepatic coma; M25.559 Pain in unspecified hip; F19.10 Other psychoactive substance abuse, uncomplicated; M25.561 Pain in right knee; F17.210 Nicotine dependence, cigarettes, uncomplicated; M25.462 Effusion, left knee; F12.10 Cannabis abuse, uncomplicated; G47.00 Insomnia, unspecified; W10.8XXA Fall (on) (from) other stairs and steps, initial encounter; Z20.822 Contact with and (suspected) exposure to COVID-19; Z98.890 Other specified postprocedural states; Z71.51 Drug abuse counseling and surveillance of drug abuser; Z71.6 Tobacco abuse counseling
CPT/HCPCS: 0241U; 20611; 36415; 72100; 73522; 73552; 73560-RT; 73562-LT; 73590; 73701; 80048; 80053; 80202; 83605; 83735; 85025; 85027; 85610; 85651; 86140; 87070; 87071; 87075; 87077; 87147; 87186; 87205; 89051; 89060; 94762; 96361-59; 96365-59; 96366-59; 96367-59; 96375-59; 96376-59; 99284-25; A9270; C1713; C1751; J0690; J0696; J1100; J1170; J1650; J1885; J2060; J2250; J2270; J2370; J2405; J2543; J2550; J2704; J2765; J3010; J3260; J3370; J7030; J7050; J7120; Q9967

== ENCOUNTER 2023-02-18 14:44 | Emergency (ER) | payer OTHER ==
[~2023-02-18] VITALS: Ht 193 cm; Wt 81.7 kg
[~2023-02-18 14:44] MED LIST changes: +ACET325 PO; +Ativan1 MG PO; +CEFAZOLIN2 GM/50 M3 IV; +DOCU100 PO; +DULCOLAX400 MG/5 M PO; +GABA100 PO; +HYDMOR2 PO; +MIRALAX1714 PO; +NARCAN4 M1; +NICO21TP TOP; +VISBIOME 112.51 EACH PO
[2023-02-18] MEDS ORDERED: HYDMOR4 PO (18:07)
== END 2023-02-18 20:38 | disposition home or self-care (01) ==
LOC: ER 14:44
DX: M25.562 Pain in left knee (principal); F17.210 Nicotine dependence, cigarettes, uncomplicated; Z98.890 Other specified postprocedural states; Z88.5 Allergy status to narcotic agent; Z79.899 Other long term (current) drug therapy
CPT/HCPCS: J1170; J3010; J7030

== ENCOUNTER 2023-04-09 13:30 | Emergency (ER) | payer OTHER ==
[~2023-04-09] VITALS: Ht 193 cm; Wt 79.4 kg
[~2023-04-09 13:30] MED LIST changes: +HYDMOR4 PO
[2023-04-09 14:03] LABS: BASOPHILS ABSOLUTE AUTO 0.05 K/mm3 (0.00-0.23); BASOPHILS PERCENT AUTO 1 % (0-2); EOSINOPHILS ABSOLUTE AUTO 0.05 K/mm3 (0.00-0.68); EOSINOPHILS PERCENT AUTO 1 % (0-6); Hematocrit 44.6 % (37.0-53.0); IMMATURE GRAN ABSOLUTE AUTO 0.01 K/mm3 (0.00-0.10); IMMATURE GRAN PERCENT AUTO 0 % (0-1); LYMPHOCYTES ABSOLUTE AUTO 1.87 K/mm3 (0.84-5.20); LYMPHOCYTES PERCENT AUTO 27 % (21-46); MONOCYTES ABSOLUTE AUTO 0.42 K/mm3 (0.16-1.47); MONOCYTES PERCENT AUTO 6 % (4-13); Mean Corpuscular HGB 30.2 pg (26.0-34.0); Mean Corpuscular HGB Conc 33.6 g/dL (31.5-36.5); Mean Corpuscular Volume 90 fL (80-100); Mean Platelet Volume 9.7 fL (9.1-12.4); NEUTROPHILS ABSOLUTE AUTO 4.46 K/mm3 (1.96-9.15); NEUTROPHILS PERCENT AUTO 65 % (41-73); Platelet Count 324 K/mm3 (150-400); RDW Coefficient Variation 12.1 % (11.7-14.2); RDW Standard Deviation 40.5 fL (35.1-46.3); Red Blood Cell Count 4.96 M/mm3 (4.30-5.90); White Blood Cell Count 6.86 K/mm3 (4.00-11.30)
[2023-04-09 14:16] LABS: Albumin, Blood 4.3 g/dL (3.4-5.0); Albumin/Globulin Ratio 1.2 (0.8-1.8); Bilirubin, Total 0.4 mg/dL (0.1-1.0); Bun/Creatinine Ratio 7.8 (12.0-20.0); Calcium, Blood 9.7 mg/dL (8.5-10.1); Creatinine, Blood 0.77 mg/dL (0.60-1.20); Globulin, Blood 3.6 g/dL (2.2-4.0); Potassium, Blood 4.1 mmol/L (3.5-5.5); Total Protein, Blood 7.9 g/dL (6.4-8.2)
[2023-04-09] MEDS ORDERED: MORP30ER PO (15:23)
[2023-04-09] MEDS ORDERED: Hydroxyzine HCl50 MG PO (15:25)
[2023-04-09 16:30] VITALS: BP 108/80
== END 2023-04-09 17:05 | disposition home or self-care (01) ==
LOC: ER 13:30
PROVIDERS: Physician Assistant
DX: M25.562 Pain in left knee (principal); Z88.8 Allergy status to other drugs, medicaments and biological substances; Z79.899 Other long term (current) drug therapy; F17.210 Nicotine dependence, cigarettes, uncomplicated
CPT/HCPCS: 73562-LT; 80053; 83690; 84145; 85025